=== PATIENT | female | born 1950 | race African-American/Black ===

== ENCOUNTER 2017-09-07 13:04 | Emergency (ER) | payer MEDICARE, MEDICAID ==
[2017-09-07 13:26] VITALS: BP 189/84
--- NOTE | 2017-09-07 13:29 | UC ---
Cardiac HPI - HPI Summary HPI Summary: This is scribe Radha Bethea documenting for attending Claudia Busch M.D. Pt is a 66 y/o F who presents to [facility] c/o CP and palpitations for 2 days. Pain is in the left anterior and lateral regions, ranked 5/10 on triage. Yesterday, pain was characterized as tightness "like when you have a chest cold " and today, it's described as a "pinching sensation." Pt tried resting and hydrating, as well as taking Advil, which did not improve sx. Palpitations are characterized as pounding. Additionally c/o mild nausea (which she suspects is secondary to having not eaten) and generalized weakness. Denies SOB and lightheadedness. Notes that she tends to experience gastritis secondary to ASA. 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 States that her current episode of symptoms is not similar to when she had an RI. She has a prescription for NTG which she reports she has never taken. PCP is Dr. Moon and she last had a stress test many years ago. At the time, she was unable to complete a physical test and instead did a nuclear stress test. SHx current smoker -1 PPD. Patients medication reviewed this visit. - History of Current Complaint Chief Complaint: UCChestPain Stated Complaint: CHEST PAIN Time Seen by Provider: 09/07/17 13:06 Hx Obtained From: Patient Hx Last Menstrual Period: na Onset/Duration: Lasting Days - 2 days, Still Present Current Severity: Moderate Pain Intensity: 5 Chest Pain Location: Left Anterior, Left Lateral Character: Tightness Aggravating Factor(s): Nothing Alleviating Factor(s): Nothing Associated Signs & Symptoms: Positive: Palpitations. Negative: SOB - Allergy/Home Medications Allergies/Adverse Reactions: Allergies Allergy/AdvReac Type Severity Reaction Status Date / Time No Known Allergies Allergy Verified 09/07/17 13:27 Home Medications: Home Medications Nitroglycerin TAB 0.3 MG* 0.3 mg SL Q5M PRN 09/07/17 [History Confirmed 09/07/17 ] PMH/Surg Hx/FS Hx/Imm Hx Endocrine History: Diabetes - Borderline, Dyslipidemia Cardiovascular History: Cardiac Disease, Hypertension, Myocardial Infarction GI/ History: Ulcer Other History Of: Negative For: Anticoagulant Therapy - Surgical History Surgical History: Yes Surgery Procedure, Year, and Place: CATARACT REMOVED FROM RIGHT and left EYEs - Family History Known Family History: Positive: Cardiac Disease, Diabetes, Other - cataracts - Social History Occupation: Disabled Lives: With Family Alcohol Use: None Substance Use Type: None Smoking Status (MU): Heavy Every Day Tobacco Smoker Type: Cigarettes Amount Used/How Often: 1 PPD Length of Time of Smoking/Using Tobacco: 54 Have You Smoked in the Last Year: Yes Household Exposure Type: Cigarettes - Immunization History Most Recent Influenza Vaccination: 2001 Most Recent Tetanus Shot: 2013 Most Recent Pneumonia Vaccination: never Review of Systems Constitutional: Other - Generalized weakness Skin: Negative Eyes: Negative ENT: Negative Respiratory: Negative Cardiovascular: Palpitations, Chest Pain Gastrointestinal: Nausea Genitourinary: Negative Motor: Negative Neurovascular: Negative Musculoskeletal: Negative Neurological: Negative Psychological: Negative All Other Systems Reviewed And Are Negative: Yes - Comments Additional Review of Systems Comments: NEGATIVE: SOB, lightheadedness Physical Exam - Summary Physical Exam Summary: Vital Signs Reviewed: Yes A+Ox3, no distress Eyes: Conjunctiva Clear, KATALINA. EOM intact and full ENT: Hearing grossly normal TM x 2 clear, mmoist, uvula midline, no exudate, no erythema Neck: Positive: Supple Respiratory: Positive: No respiratory distress, No accessory muscle use + CTA throughout no w/r Cardiovascular: RRR nl s1, s2 no m/r CBT <2 sec non tender to pa abd soft + BS nt/nd no guarding, no distension Musculoskeletal Exam: MERCADO x 4 without difficulty Strength Intact, ROM Intact Neurological: Positive: Alert, + sensation throughout Psychological: Positive: Normal Response To Family Skin: Positive: no rash, no ecchymosis dry Triage Information Reviewed: Yes Vital Signs: Initial Vital Signs Temp 97.5 F 09/07/17 13:20 Pulse 65 09/07/17 13:20 Resp 18 09/07/17 13:20 BP 189/84 09/07/17 13:20 Pulse Ox 99 09/07/17 13:20 Diagnostics - EKG EKG Comments: Done at 1304\\ No acute ST T wave changes Cardiac Rate: NL - 62 bpm Cardiac Rhythm: Sinus: Normal ST Segment: Normal - Assessment/Plan Course Of Treatment: Patient medications reviewed this visit. Blood pressure noted and pt informed to follow up with her PCP. Patient presents to urgent care with reports of chest pounding palpitations, nausea, and chest pressure yesterday. Other symptoms lasted for 2 days. Patient has not taken anything for pain today. Patient took Motrin yesterday. Patient does have hypertension , diabetes borderline, high cholesterol. 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 Patient does not see cardiology is. Patient has not had a stress test many years. Discussed with patient her EKG. Concerned given her past history and medical history. Recommend patient reemerged in by EMS. Patient in agreement with plan. Patient has a notify family. No family available melena. Patient states her knees brought her here. Patient agrees to go. Spoke with Dr. Arredondo give report in the ED. Of note, pt with elevated BP. Pt going to ED by EMS for eval - Clinical Impression Provider Diagnoses: chest pain - Physician Notifications Discussed Patient Care With: Claudia Rouse - Attending in the E.D. Time Discussed With Above Provider: 13:50 Instructed by Provider To: Other - Discussed case. Discharge - Sign-Out/Discharge Documenting (check all that apply): Patient Departure - To ED - Discharge Plan Condition: Stable Disposition: TRANS HIGHER LVL OF CARE FAC Referrals: Katy Moon MD [Primary Care Provider] - - Billing Disposition and Condition Condition: STABLE Disposition: Trans Higher Lvl of Care Fac
[2017-09-07] MEDS ORDERED: Aspirin 81 mg CHEW TAB* 81 MG TAB.CHEW PO ONE (13:44)
== END 2017-09-07 14:06 | disposition short-term general hospital (02) ==
LOC: UCEAST 13:04
DX: R07.89 Other chest pain (principal); R00.2 Palpitations; R11.0 Nausea; R53.1 Weakness; I25.2 Old myocardial infarction; I10 Essential (primary) hypertension; Z82.49 Family history of ischemic heart disease and other diseases of the circulatory system; Z83.3 Family history of diabetes mellitus; F17.210 Nicotine dependence, cigarettes, uncomplicated
CPT/HCPCS: 93005; 99213; A9270-GY; G0463

== ENCOUNTER 2017-09-07 14:23 | Inpatient (IN) | payer MEDICARE, MEDICAID ==
--- NOTE | 2017-09-07 14:29 | ED ---
HPI Chest Pain - HPI Summary HPI Summary: This is opal Connell documenting for attending Claudia Rouse M.D. This patient is a 66 year old F presenting to [facility], referred from [facility] , with a chief complaint of CP since 09/05/17. Denies current CP, SOB. Pt endorsed pain started radiating to her jaw, neck and arms, and she experienced palpitations, which is when she decided to go to . Pt endorses a mild cough, chest congestion. Pt informed of her HTN 200/100 which is concerning for her and pt was hypertensive in urgent care also. She denies any recent fever. Pt took 162 mg ASA in urgent care. Pt initially declined ASA due to GI upset but agreed to 162mg ASA. PMHx HTN, HLD, CAD, [place]: flown somewhere for a heart attack once. Pt had a nuclear stress test years ago. Her PCP is Dr. Moon. Pt continues to smoke cigarettes. - History of Current Complaint Hx Obtained From: Patient, Medical Records, Other: - Dr. Busch at urgent care Hx Last Menstrual Period: na Onset/Duration: Started Days Ago - 2, Resolved Timing: Constant, Lasting Days - resolved Initial Severity: Moderate Current Severity: None Pain Intensity: 0 Pain Scale Used: 0-10 Numeric Chest Pain Location: Diffuse Chest Pain Radiates: Yes Chest Pain Radiates To:: Arm - both, Jaw, Neck Character: Cough, Non-Productive, Fast, Pounding, Tightness Aggravating Factor(s): Nothing Alleviating Factor(s): Medication - ASA taken at Associated Signs and Symptoms: Positive: Chest Pain, Palpitations, Nonproductive Cough. Negative: Shortness of Breath, Fever - Allergy/Home Medications Allergies/Adverse Reactions: Allergies Allergy/AdvReac Type Severity Reaction Status Date / Time No Known Allergies Allergy Verified 09/07/17 13:27 Home Medications: Home Medications Atorvastatin* [Lipitor 40 MG*] 40 mg PO DAILY 09/07/17 [History Confirmed ] Colestipol (NF) 1 gm PO DAILY 09/07/17 [History Confirmed 09/07/17] HYDROcodone/ACETAMIN 5-325 MG* [[place]ler 5-325 TAB*] 1 tab PO Q6H PRN 09/07/17 [ History Confirmed 09/07/17] PMH/Surg Hx/FS Hx/Imm Hx Previously Healthy: No Endocrine/Hematology History: Reports: Hx Unexplained Bleeding Denies: Hx Anticoagulant Therapy, Hx Blood Disorders, Hx Blood Transfusions, Hx Bone Marrow Disease, Hx Diabetes, Hx Systemic Lupus Erythematosus, Hx Sickle Cell Disease, Hx Thyroid Disease, Hx Anemia Cardiovascular History: Reports: Hx Angina, Hx Coronary Artery Disease, Hx Hypercholesterolemia, Hx Hypertension, Hx Myocardial Infarction - 5 per pt Denies: Hx Pacemaker/ICD, Hx Rheumatic Fever, Hx Syncope, Hx Valvular Heart Disease Respiratory History: Reports: Hx Seasonal Allergies Denies: Hx Asthma, Hx Chronic Bronchitis, Hx Chronic Obstructive Pulmonary Disease (COPD), Hx Cystic Fibrosis, Hx Lung Cancer, Hx Pleural Effusion, Hx Pneumonia, Hx Pulmonary Edema, Hx Pulmonary Embolism, Hx Sleep Apnea GI History: Reports: Hx Ulcer Denies: Hx Cirrhosis Sensory History: Reports: Hx Cataracts, Hx Contacts or Glasses, Hx Glaucoma Denies: Hx Legally Blind, Hx Macular Degeneration, Hx Deafness, Hx Hearing Aid Opthamlomology History: Reports: Hx Cataracts, Hx Contacts or Glasses, Hx Glaucoma Denies: Hx Legally Blind, Hx Macular Degeneration EENT History: Denies: Hx Deafness Neurological History: Reports: Hx Migraine Denies: Hx Dementia, Hx Developmental Delay, Hx Headaches, Hx Nerve Disease, Hx Seizures, Hx Spinal Cord Injury, Hx Transient Ischemic Attacks (TIA) Psychiatric History: Denies: Hx Panic Disorder - Surgical History Surgery Procedure, Year, and Place: CATARACT REMOVED FROM RIGHT and left EYEs Hx Anesthesia Reactions: No Infectious Disease History: No Infectious Disease History: Denies: Hx Clostridium Difficile, Hx Hepatitis, Hx Human Immunodeficiency Virus (HIV), Hx of Known/Suspected MRSA, Hx Shingles, Hx Tuberculosis - Family History Known Family History: Positive: Cardiac Disease, Diabetes, Other - cataracts - Social History Occupation: Disabled Alcohol Use: None Substance Use Type: Reports: None Hx Tobacco Use: Yes Smoking Status (MU): Heavy Every Day Tobacco Smoker Type: Cigarettes Amount Used/How Often: 1 PPD Length of Time of Smoking/Using Tobacco: 54 Have You Smoked in the Last Year: Yes Review of Systems Negative: Fever Positive: Palpitations, Chest Pain Positive: Cough - nonproductive . Negative: Shortness Of Breath Gastrointestinal: Negative Positive: no symptoms reported Positive: Arthralgia - neck, jaw, Myalgia - bilateral arms Skin: Negative Neurological: Negative Psychological: Normal All Other Systems Reviewed And Are Negative: Yes Physical Exam - Summary Physical Exam Summary: Appearance: Well-appearing, no pain distress, obese, hypertensive Skin: Warm, color reflects adequate perfusion, dry Head: Normal Head/Face inspection, atraumatic Eyes: Conjunctiva clear ENT: Normal inspection Neck: Supple, no nodes, no JVD Respiratory: Lungs clear, normal breath sounds, no respiratory distress Cardio: RRR, No murmur, pulses normal, brisk capillary refill Abdomen: Soft, nontender Bowel sounds: Present Musculoskeletal: Strength Intact/ROM intact, no calf tenderness, no edema. Psychological: Normal Neuro: Alert, muscle tone normal, no focal deficit Triage Information Reviewed: Yes Vital Signs Reviewed: Yes Diagnostics - Laboratory Result Diagrams: 09/08/17 05:52 09/08/17 05:52 Lab Statement: Any lab studies that have been ordered have been reviewed, and results considered in the medical decision making process. - Radiology CXR Xray Interpretation: No Acute Changes Radiology Interpretation Completed By: Radiologist - Cardiomegaly; no evidence for acute finding. - EKG 1435 Cardiac Rate: Bradycardia - 59 EKG Rhythm: Sinus Bradycardia ST Segment: Normal Ectopy: None EKG Interpretation: nl axis, nl AV IV CT, nl QTc, no acute changes EKG Comparison: No Significant Change - when compared with earlier today 09/07/17 , 11/20/15. Re-Evaluation - Re-Evaluation First Eval Re-Evaluation Time: 16:42 Change: Improved Comment: Per RN Rochelle, manual reading of blood pressure 186/118. Pt endorses CP has improved. Second Eval Re-Evaluation Time: 17:00 Change: Unchanged - 1700 Pt feels hungry, can eat now. Recheck BP 213/142. Endorses feeling congested, One good cough and it would go away endorses mild cough, no fever. Amenable to discharge if BP is controlled. Chest Pain Course/Dx - Course Course Of Treatment: 66 yo F with HTN, DM, HTN, hyperlipidemia and "being flown somewhere for a heart attack" who still smokes, presents by EMS after given ASA 162 mg chewed at [facility] for chest pain, palpitations, hypertensive emergency. EKG sinus bradycardia 59, nl REFUGIO CT, nl axis, nl QTc, no acute changes, no changes when c/w earlier today 09/07/17, and 11/20/15. CXR reveals cardiomegaly; no evidence for acute finding. Pt was given norvasc and IV labetalol 10mg with no change in her BP. Pt with multiple cardiac risk factors and probable cardiac hx, admitted for further evaluation of chest pain which resolved spontaneously prior to ED and for control of hypertensive emergency that did not respond to oral norvasc or IV labetalol 10mg IV. - Diagnoses Provider Diagnoses: Chest pain, Tobacco abuse disorder, Hypertension, uncontrolled, Hypertensive emergency without congestive heart failure - Provider Notifications Discussed Care Of Patient With: Benito Dow Time Discussed With Above Provider: 18:20 Instructed by Provider To: Other - accepts admission - Critical Care Time Critical Care Time: 30-74 min - 30 minutes, evaluation and treatment of chest pain and hypertensive emergency with IV medication, requiring admission to ICU Discharge - Sign-Out/Discharge Documenting (check all that apply): Patient Departure - admit - Discharge Plan Condition: Improved Disposition: ADMITTED TO [facility] - Billing Disposition and Condition Condition: IMPROVED Disposition: Admitted to [facility]
[2017-09-07 15:37] LABS: ABS Basophils 0.1 10^3/ul (0-0.2); ABS Eosinophils 0.5 10^3/ul (0-0.6); ABS Lymphocytes 3.3 10^3/ul (1.0-4.8); ABS Monocytes 0.6 10^3/ul (0-0.8); ABS Neutrophils 2.8 10^3/ul (1.5-7.7); ABS Nucleated RBC 0 10^3/ul; Eosinophil % 6.3 % (0-6); Hematocrit 41 % (35-47); Hemoglobin 14.2 g/dl (12.0-16.0); Lymphocyte % 45.1 % (25-47); Mean Corpuscular HGB Conc 35 g/dl (31-36); Mean Corpuscular Hemoglobin 32 pg (27-31); Mean Corpuscular Volume 92 fL (80-97); Mean Platelet Volume 7.4 um3 (7.4-10.4); Nucleated Red Blood Cells % 0.2; Platelet Count 315 10^3/ul (150-450); Red Blood Count 4.41 10^6/ul (4.00-5.40); Red Cell Distribution Width 13 % (10.5-15); White Blood Count 7.3 10^3/ul (3.5-10.8)
[2017-09-07 15:47] LABS: INR 0.99 (0.77-1.02)
--- NOTE | 2017-09-07 15:51 | RAD ---
INDICATION: Chest pain. COMPARISON: Comparison is made with a prior chest x-ray study from July 07, 2013. TECHNIQUE: A portable view of the chest was obtained. FINDINGS: The heart is mildly enlarged and unchanged. There is a slightly tortuous ectatic thoracic aorta. The lungs are clear. No pleural effusion is seen. IMPRESSION: CARDIOMEGALY, NO EVIDENCE FOR ACUTE FINDING.
[2017-09-07 15:59] LABS: EGFR Non-African American 83.2 (>60)
[2017-09-07] MEDS ORDERED: amLODIPine TAB* 5 MG PO ONE (16:38)
[2017-09-07] MEDS ORDERED: amLODIPine TAB* 5 MG ONE (16:40)
[2017-09-07] MEDS ORDERED: Labetalol IV* 5 MG/ML 20 ML VIAL IV PUSH ONE (18:10)
[2017-09-07] MEDS ORDERED: hydrALAZINE IV* 20 MG/ML VIAL ONE (18:38)
[2017-09-07] MEDS ORDERED: hydrALAZINE IV* 20 MG/ML VIAL IV SLOW PU ONE (18:40)
[2017-09-07] MEDS ORDERED: Acetaminophen TAB* 325 MG PO PRN (18:48)
[2017-09-07] MEDS ORDERED: Ondansetron INJ* 2 MG/ML VIAL IV PRN (18:48)
[2017-09-07] MEDS ORDERED: hydrALAZINE IV* 20 MG/ML VIAL IV SLOW PU PRN (18:48)
[2017-09-07] MEDS ORDERED: Albuterol 2.5 MG/3 ML NEB.SOL* (0.083%) INH PRN (19:01)
[2017-09-07] MEDS ORDERED: Potassium Chlor TAB* 20 MEQ TAB.ER PO ONE (19:01)
--- NOTE | 2017-09-07 19:14 | RAD ---
Indication: Headaches. CT of the brain performed without IV contrast. Ventricular structures are midline. No midline shift is noted. The extra-axial spaces are unremarkable. No evidence of intracranial mass or hemorrhage. No other high or low density lesions are identified. Mastoid air cells and paranasal sinuses are otherwise unremarkable. IMPRESSION: No intracranial mass or hemorrhage is noted.
[2017-09-07] MEDS ORDERED: niCARdipine 0.1MG/ML IVPREMIX* 20 MG/200 ML BAG ONE (19:48)
[2017-09-07] MEDS: niCARdipine 0.1MG/ML IVPREMIX* 20 MG/200 ML BAG IV SCH ×2 (20:30→22:54)
[2017-09-07] MEDS: HYDROcodone/ACETAMIN 5-325 MG* 1 TAB PO PRN (20:37)
--- NOTE | 2017-09-07 21:14 | HP ---
CC: Dr. Moon * HISTORY AND PHYSICAL: DATE OF ADMISSION: 09/07/17 PRIMARY CARE PROVIDER: Dr. Moon. ATTENDING PHYSICIAN IN THE HOSPITAL: Arthur Dow MD * (report dictated by Valente Noe NP) CHIEF COMPLAINT: 1. Chest pain. 2. Headache. HISTORY OF PRESENT ILLNESS: Mrs. Franklin is a 66-year-old female patient. She has a history of hypertension, hyperlipidemia. She also says she has a history of 4 MIs, although she has never had a CABG or stenting. She also carries a history of COPD, history of borderline diabetes, and history of peptic ulcer disease. She is coming into the ED today. She says the last couple of days, she has been having intermittent chest discomfort that does go into her jaw and down her arm and has been associated with exertion. She has had nausea at times with this. She says she does not feel short of breath. She says her blood pressure to her knowledge has been running okay with Dr. Moon. She says that she has also been having fluttering and palpitations in her chest. She was concerned because the discomfort was not going away. Her daughter convinced her to come into the hospital and so she decided to come into the ER today. When she arrived in the ER, blood pressure was 213/108 and despite interventions it has climbed up to 204/101. The patient said she had been having intermittent headaches. There have been no visual changes. She denies having any chest pain now. Says she is feeling well, but there was concern because her blood pressure may remain persistently elevated. Because of this, we were asked to evaluate for admission. PAST MEDICAL HISTORY: Significant for: 1. Hypertension. 2. Hyperlipidemia. 3. Reported history of SD. 4. COPD. 5. Borderline diabetes. 6. Peptic ulcer disease. PAST SURGICAL HISTORY: The patient had; 1. Cataract extraction. 2. Tonsillectomy. MEDICATIONS: Home meds according to the list provided include: 1. Nitro 0.3 mg sublingual every 5 minutes as needed for chest pain. 2. [place] 1 tablet every 6 hours as needed. 3. Colestipol 1 g p.o. daily. 4. Lipitor 40 mg daily. 5. Amlodipine 10 mg daily. 6. Aspirin 325 mg p.o. every other day. ALLERGIES TO MEDICATIONS: Include no known drug allergies. FAMILY HISTORY: Mother had a history of dementia and father had a history of CAD. SOCIAL HISTORY: She is about a pack a day smoker. She has been smoking for 52 years. She does not drink alcohol. Surrogate decision maker is her daughter. REVIEW OF SYSTEMS: There is no documented fever. She is denying any significant weight change. There is no double vision. She denies having any ear discharge. There is no rhinorrhea. There is no sore throat. No thyroid enlargement. There was chest pain from HPI. There is no orthopnea. No nocturnal dyspnea. There was no abdominal pain. There was no nausea, no vomiting. No dysuria, no frequency. No seizure, no loss of consciousness. No pruritus and no skin ulcerations. Review of 14 systems was completed, all others negative. PHYSICAL EXAMINATION GENERAL: At this time, Mrs. Franklin is a 66-year-old female patient. She is sitting in the ED stretcher. She does not appear to be in any acute distress. She is awake and well nourished. VITAL SIGNS: Reveals vital signs blood pressure now of 204/101, pulse 57, respirations 15, O2 sat 96%, temperature 97.5. HEENT: Head: Atraumatic and normocephalic. Eyes: EOMs are intact. Sclerae anicteric and not pale. Throat: Oral mucosa appears to be moist. No oropharyngeal erythema. NECK: Supple. LUNGS: Clear to auscultation bilaterally. No wheezes, rales, or rhonchi. HEART: Sounds S1, S2. Regular rate and rhythm. No murmurs, rubs, or gallops. ABDOMEN: Soft. It was flat, nontender. Bowel sounds were present. EXTREMITIES: Pulses were 2+ throughout. She is able to move all 4 extremities with 5/5 strength. NEUROLOGIC: She is awake. She is alert. She is oriented x3. Speech is clear. Tongue is midline. Warehouse Team Member were equal. She had no gross focal deficits. SKIN: Grossly intact. DIAGNOSTIC STUDIES/LAB DATA: Labs are revealing a WBC of 7.3, RBC of 4.41, hemoglobin of 14.2, hematocrit of 41 and platelet count of 315. INR 0.99, PTT of 33.7. D-dimer less than 200. Sodium was 141, potassium was 3.4, chloride of 107, bicarb of 26, BUN 12, creatinine of 0.70, glucose 83. Lactate 0.5. Calcium 9.2. Mag 2.0. Total bili 0.3, AST 14, ALT 14, alk phos 84. CK was 127 , CK-MB 3.3. Troponin 0.01. Repeat troponin was 0. BNP 32. Albumin 3.7. TSH was normal. The patient did have a chest x-ray obtained today, which revealed cardiomegaly, no evidence for acute findings. She did have an EKG obtained today, which is showing sinus bradycardia, rate of 59, no ST elevations or T wave inversions. She did have an EKG from 2 years ago. It is similar. She was bradycardic at that point as well. Old medical records were reviewed. ASSESSMENT AND PLAN: Mrs. Franklin is a 66-year-old female patient coming into the ER today with complaints of chest discomfort radiating into the jaw and then to the arm, at times associated with exertion. We were asked to evaluate for admission. She will be admitted under inpatient status for: 1. Chest discomfort. Again, I would like to have the patient do a stress test. However, her blood pressure at resting now is 200, which is a relative contraindication for stress testing. I would like to try to get better control of her blood pressure. If possible, we could try to do a stress test tomorrow. I am going to cycle troponins and get an echo. Chest pressure may be certainly related to her blood pressure being so elevated. So, I would like to get this controlled. I am going to place her in the ICU. I have started with p.r.n. hydralazine. This is her first IV med that she has gotten since she has been here. If I need to, I will start her on a continuous drip in the ICU, such as nicardipine. I am going to monitor her closely. She is on aspirin already and she is taking nystatin and she is chest pain-free now and she has had serial troponins, which were negative, which was reassuring. 2. Hypertensive emergency. Again, at this point, she has gotten p.r.n. hydralazine right now. If I cannot get her blood pressure below 180 and diastolic less than 110, I will certainly start her on nicardipine drip. I am getting a CT of the brain because of the headaches. 3. Hyperlipidemia. Continue meds as prescribed. 4. History of myocardial infarction. She is on aspirin at this point. We are getting an echo, cycling her trop. I will consider a stress test so we can get better control of the blood pressure. 5. Chronic obstructive pulmonary disease. I have ordered p.r.n. albuterol. 6. History of borderline diabetes. Follow up with PCP. 7. History of peptic ulcer disease. Continue current medical regimen. 8. DVT prophylaxis. Because of the elevated blood pressure, I am waiting for the CT of the brain. I am just going to put her on SCDs. 9. Fluids, electrolytes, and nutrition. She can have a heart-healthy diet. 10. Code status. Full code. TIME SPENT: On admission was 60 minutes, greater than half the time was spent face- to-face with the patient obtaining my history and physical; other half time was spent going over the plan of care with the patient and implementing plan of care. I did discuss the plan of care with my attending, Dr. Dow, he is in agreement. VALENTE NOE, TYRELL [id number]/CPS #: [id number] JESUS
[2017-09-08] MEDS: niCARdipine 0.1MG/ML IVPREMIX* 20 MG/200 ML BAG IV SCH ×4 (01:05→05:37)
[2017-09-08] MEDS: HYDROcodone/ACETAMIN 5-325 MG* 1 TAB PO PRN (04:18)
[2017-09-08] MEDS ORDERED: Morphine INJ* 2 MG/ML 1 ML SYRINGE (TWO MG - NEW SYRINGE VERSION) IV PRN (05:26)
[2017-09-08] MEDS ORDERED: Morphine INJ* 2 MG/ML 1 ML SYRINGE (TWO MG - NEW SYRINGE VERSION) ONE (05:31)
[2017-09-08] MEDS ORDERED: Iohexol 350* (CONTRAST) 500 ML MDV IV ONE (05:48)
[2017-09-08 06:08] LABS: ABS Basophils 0.1 10^3/ul (0-0.2); ABS Eosinophils 0.4 10^3/ul (0-0.6); ABS Lymphocytes 2.5 10^3/ul (1.0-4.8); ABS Monocytes 0.7 10^3/ul (0-0.8); ABS Neutrophils 5.3 10^3/ul (1.5-7.7); ABS Nucleated RBC 0 10^3/ul; Eosinophil % 4.1 % (0-6); Hematocrit 41 % (35-47); Hemoglobin 14.1 g/dl (12.0-16.0); Lymphocyte % 28.4 % (25-47); Mean Corpuscular HGB Conc 35 g/dl (31-36); Mean Corpuscular Hemoglobin 32 pg (27-31); Mean Corpuscular Volume 93 fL (80-97); Mean Platelet Volume 7.2 um3 (7.4-10.4); Nucleated Red Blood Cells % 0.1; Platelet Count 305 10^3/ul (150-450); Red Blood Count 4.38 10^6/ul (4.00-5.40); Red Cell Distribution Width 12 % (10.5-15)
[2017-09-08 06:14] LABS: INR 1.07 (0.77-1.02)
[2017-09-08 06:26] LABS: EGFR Non-African American 87.5 (>60)
--- NOTE | 2017-09-08 07:58 | RAD ---
HISTORY: Chest pain r/o dissection, r/o PE COMPARISONS: None TECHNIQUE: Multiple contiguous axial CT scans of the chest were obtained after the administration of nonionic intravenous contrast, timed to the pulmonary arterial phase of contrast enhancement.. Coronal and sagittal multiplanar reformations are also submitted for review. FINDINGS: NECK AND THYROID: The thyroid is heterogeneous and diffusely enlarged. CHEST WALL: There is no lower cervical, axillary, or supraclavicular lymphadenopathy by size criteria. HEART AND PERICARDIUM: Coronary and valvular cardiac calcifications are noted. There is a small pericardial effusion. AORTA AND PULMONARY VASCULATURE: There is no pulmonary arterial filling defect to suggest pulmonary embolism. There is fusiform enlargement of the right pulmonary artery which measures up to 2.8 cm in diameter.. There is no linear filling defect within the aorta to suggest aortic dissection. There is atherosclerosis of the thoracic aorta. MEDIASTINUM: There is no mediastinal lymphadenopathy by size criteria. JEREMY: There is no hilar lymphadenopathy by size criteria. AIRWAY AND ESOPHAGUS: The airway is unremarkable, without endobronchial filling defect. The esophagus is grossly normal. LUNG PARENCHYMA: The lungs are clear. PLEURA: No pleural abnormalities are noted. UPPER ABDOMEN: There is a moderate sliding hiatal hernia. BONES AND SOFT TISSUES: Mild degenerative changes are noted. OTHER: None. IMPRESSION: 1. NO PULMONARY ARTERIAL FILLING DEFECT TO SUGGEST PULMONARY EMBOLISM. WITHIN THE LIMITATIONS OF THE TECHNIQUE, THERE IS NO APPRECIABLE LINEAR FILLING DEFECT TO SUGGEST AORTIC DISSECTION. 2. ENLARGEMENT OF THE RIGHT MAIN PULMONARY ARTERY. 3. ENLARGED HETEROGENEOUS THYROID. 4. HIATAL HERNIA. 5. SMALL PERICARDIAL EFFUSION. R2
[2017-09-08] MEDS ORDERED: amLODIPine TAB* 5 MG PO SCH (09:00)
[2017-09-08] MEDS: Atorvastatin* 40 MG TAB PO SCH (10:05)
[2017-09-08] MEDS: NIFEdipine ER TAB* 30 MG PO SCH (10:05)
[2017-09-08] MEDS: Metoprolol Tartrate TAB* 25 MG PO SCH ×2 (10:07→21:08)
--- NOTE | 2017-09-08 11:55 | ECHO ---
Patient: BRITTON TAVERAS [facility] Rec#: [id number] : 1950 Date: 09/08/2017 Age: 66y Height: 163 cm / 64.2 in Weight: 80.7 kg / 177.9 lbs Sex: F BSA: 1.9 Room#: ICU 10 Admit Date#: 09/08/2017 Type: Inpatient Referring: Valente Noe NP Reading: Sadi Miranda MD Tile Grader: Yamileth Calloway RN RDCS CC: Katy Moon MD Transthoracic Echocardiogram Indication: Chest pain BP: 135/63 HR: 65 Rhythm: NSR Findings History: CAD, HTN, HLD, DM, COPD, smoker Technical Comments: The study quality is fair. The study is technically limited due to patient body habitus. The study is technically limited due to the patient's smoking history. Left Ventricle: The left ventricular chamber size is normal. Moderate concentric left ventricular hypertrophy is observed. Global left ventricular wall motion and contractility are within normal limits. There is normal left ventricular systolic function. The estimated ejection fraction is 60-65%. There is an E to A reversal in the mitral valve flow pattern suggestive of diastolic dysfunction. Left Atrium: The left atrium is normal in size. Right Ventricle: The right ventricular cavity size is normal. The right ventricular global systolic function is low normal. Right Atrium: The right atrial cavity size is normal. Aortic Valve: The aortic valve is trileaflet. The aortic valve leaflets are mildly thickened. There is no evidence of aortic regurgitation. There is borderline aortic stenosis present. The mean gradient of the aortic valve is 11 mmHg. The peak instantaneous gradient of the aortic valve is 21 mmHg. The aortic valve area, by peak velocities, is calculated at 2.2 cm2. The aortic valve area, by VTI's, is calculated at 2.1 cm2. Mitral Valve: There is mitral annular calcification. The mitral valve leaflets are mildly thickened. There is mild mitral regurgitation. There is no evidence of mitral stenosis. Tricuspid Valve: The tricuspid valve leaflets are normal. There is trace to mild tricuspid regurgitation. Unable to estimate the right ventricular systolic pressure. There is no tricuspid stenosis. Pulmonic Valve: The pulmonic valve structure is not well visualized. There is a trace pulmonic regurgitation. There is no pulmonic stenosis. Pericardium: A trivial pericardial effusion is visualized.No hemodynamic compromise. A pericardial fat pad is visualized. Aorta: There is no dilatation of the ascending aorta. There is no dilatation of the aortic arch. There is no dilation of the aortic root. Pulmonary Artery: The main pulmonary artery is not well visualized. Venous: The venous system is not well visualized. The inferior vena cava is not visualized. Summary: There are changes noted when compared to the previous study done on 07/08/2013, borderline is new. MR is mild instead of trace then. Conclusions The left ventricular chamber size is normal. Moderate concentric left ventricular hypertrophy is observed. The estimated ejection fraction is 60-65%. There is an E to A reversal in the mitral valve flow pattern suggestive of diastolic dysfunction. There is borderline aortic stenosis present. The mean gradient of the aortic valve is 11 mmHg. There is mild mitral regurgitation. There is trace to mild tricuspid regurgitation. Unable to estimate the right ventricular systolic pressure. A trivial pericardial effusion is visualized.No hemodynamic compromise. Measurements Name Value Normal Range RVIDd (AP) 2D 2.7 cm (0.9 - 2.6) RVDdMajor (2D) 3.5 cm (2.2 - 4.4) RAd ISD 4CH 4.4 cm (3.4 - 4.9) RA (A4C)W 4.1 cm (2.9 - 4.6) IVSd (2D) 1.5 cm (0.6 - 1) LVPWd (2D) 1.5 cm (0.6 - 1) LVIDd (2D) 3.6 cm (3.6 - 5.4) LVIDs (2D) 2.1 cm - LV FS (2D) 42 % (25 - 45) Aortic Annulus 1.8 cm (1.4 - 2.6) Ao root diameter (2D) 2.7 cm (2.1 - 3.5) Ascending Ao 2.9 cm (2.1 - 3.4) Aortic arch 3.3 cm (1.8 - 3.4) LA dimension (AP) 2D 3.5 cm (2.3 - 3.8) LAd ISD 4CH 5.1 cm (2.9 - 5.3) LA ISD 4CH W 4 cm (2.5 - 4.5) Name Value Normal Range LA ESV SP 4CH (MOD) 57 ml - LA ESV SP 2CH (MOD) 51 ml - Name Value Normal Range MV E-wave Vmax 0.72 m/sec - MV deceleration time 239 msec - MV A-wave Vmax 1.3 m/sec - MV E:A ratio 0.6 ratio - LV septal e' Vmax 0.05 m/sec - LV lateral e' Vmax 0.05 m/sec - LV E:e' septal ratio 14.4 ratio - LV E:e' lateral ratio 14.4 ratio - Name Value Normal Range AV Vmax 2.3 m/sec - AV VTI 49.9 cm - AV peak gradient 21 mmHg - AV mean gradient 11 mmHg - LVOT diameter 1.9 cm - LVOT Vmax 1.7 m/sec - LVOT VTI 36.7 cm - LVOT peak gradient 12 mmHg - LVOT mean gradient 7 mmHg - DOI (VTI) 0.74 ratio - DOI (Vmax) 0.74 ratio - ADDIS (continuity Vmax) 2.2 cm2 - ADDIS (continuity VTI) 2.1 cm2 - Name Value Normal Range PV Vmax 1.1 m/sec -
--- NOTE | 2017-09-08 12:56 | PN ---
Subjective Date of Service: 09/08/17 Interval History: She c/o L-sided chest pain about 8 AM, by noon no longer had chest pain. She states the pain was very similar to the pain she has had from her heart in the past. Objective Active Medications: Acetaminophen (Tylenol Tab*) 650 mg PO Q4H PRN PRN Reason: FEVER/PAIN Hydrocodone Bitart/Acetaminophen ([place] 5-325 Tab*) 1 tab PO Q6H PRN PRN Reason: PAIN Last Admin: 09/08/17 04:18 Dose: 1 tab Albuterol (Ventolin 2.5 Mg/3 Ml Neb.Chanelle*) 2.5 mg INH Q2H PRN PRN Reason: SOB/WHEEZING Last Admin: 09/08/17 12:39 Dose: 2.5 mg Aspirin (Aspirin Tab*) 325 mg PO EVERY OTHER DAY [facility] Atorvastatin Calcium (Lipitor*) 40 mg PO DAILY [facility] Last Admin: 09/08/17 10:05 Dose: 40 mg Hydralazine HCl (Apresoline Iv*) 5 mg IV SLOW PU Q6H PRN PRN Reason: BLOOD PRESSURE Last Admin: 09/08/17 03:08 Dose: 5 mg Metoprolol Tartrate (Lopressor Tab*) 25 mg PO BID [facility] Last Admin: 09/08/17 10:07 Dose: 25 mg Morphine Sulfate (Morphine Inj ((Syringe))*) 2 mg IV Q4H PRN PRN Reason: SEVERE PAIN Last Admin: 09/08/17 05:37 Dose: 2 mg Nifedipine (Procardia Xl Tab*) 90 mg PO DAILY [facility] Last Admin: 09/08/17 10:05 Dose: 90 mg Ondansetron HCl (Zofran Inj*) 4 mg IV Q6H PRN PRN Reason: NAUSEA Last Admin: 09/08/17 02:52 Dose: 4 mg Terazosin HCl (Hytrin Cap*) 5 mg PO DAILY [facility] Vital Signs - 8 hr 09/08/17 09/08/17 09/08/17 05:00 05:15 05:30 Temperature Pulse Rate 78 77 76 Respiratory 19 19 16 Rate Blood Pressure 132/69 132/71 133/61 (mmHg) O2 Sat by Pulse 93 91 93 Oximetry 09/08/17 09/08/17 09/08/17 05:37 05:45 06:00 Temperature Pulse Rate 73 72 Respiratory 20 17 17 Rate Blood Pressure 109/56 112/61 (mmHg) O2 Sat by Pulse 90 90 Oximetry 09/08/17 09/08/17 09/08/17 06:41 06:45 07:00 Temperature Pulse Rate 74 74 63 Respiratory 17 19 18 Rate Blood Pressure 126/71 124/74 112/66 (mmHg) O2 Sat by Pulse 93 93 90 Oximetry 09/08/17 09/08/17 09/08/17 07:15 07:47 07:58 Temperature 98.8 F Pulse Rate 67 59 Respiratory 17 21 Rate Blood Pressure 114/74 114/66 (mmHg) O2 Sat by Pulse 89 96 Oximetry 09/08/17 09/08/17 09/08/17 08:00 08:15 08:31 Temperature Pulse Rate 59 64 61 Respiratory 18 16 14 Rate Blood Pressure 116/67 120/65 129/61 (mmHg) O2 Sat by Pulse 96 97 98 Oximetry 09/08/17 09/08/17 09/08/17 08:45 09:00 09:15 Temperature Pulse Rate 60 64 64 Respiratory 20 17 22 Rate Blood Pressure 143/62 142/71 129/67 (mmHg) O2 Sat by Pulse 97 93 93 Oximetry 09/08/17 09/08/17 09/08/17 09:30 09:45 10:00 Temperature Pulse Rate 63 61 62 Respiratory 15 16 14 Rate Blood Pressure 125/67 133/62 (mmHg) O2 Sat by Pulse 96 93 97 Oximetry 09/08/17 09/08/17 09/08/17 10:01 10:15 10:30 Temperature Pulse Rate 60 62 59 Respiratory 15 12 16 Rate Blood Pressure 147/66 142/70 (mmHg) O2 Sat by Pulse 96 97 97 Oximetry 09/08/17 09/08/17 09/08/17 10:45 11:00 11:15 Temperature Pulse Rate 58 57 56 Respiratory 18 15 16 Rate Blood Pressure 145/76 129/71 138/73 (mmHg) O2 Sat by Pulse 95 96 98 Oximetry 09/08/17 09/08/17 09/08/17 11:30 11:46 12:06 Temperature Pulse Rate 57 57 Respiratory 15 21 6 Rate Blood Pressure 117/70 147/72 (mmHg) O2 Sat by Pulse 97 96 Oximetry 09/08/17 09/08/17 09/08/17 12:15 12:30 12:41 Temperature Pulse Rate 67 57 57 Respiratory 23 19 15 Rate Blood Pressure 149/72 158/70 (mmHg) O2 Sat by Pulse 94 92 94 Oximetry Oxygen Devices in Use Now: None Appearance: Alert, partly up ICU bed. In good spirits. Looks comfortable. Eyes: No Scleral Icterus Respiratory: Symmetrical Chest Expansion and Respiratory Effort, Clear to Auscultation, Clear to Percussion Cardiovascular: NL Sounds; No Murmurs; No JVD, RRR, No Edema, - - No chest wall tenderness Extremities: No Edema, No Clubbing, Cyanosis, - Skin: No Rash or Ulcers, No Nodules or Sclerosis, - Neurological: Alert and Oriented x 3, NL Sensation Result Diagrams: 09/08/17 05:52 09/08/17 05:52 Microbiology and Other Data: Microbiology 09/08/17 04:00 Nasal Screen MRSA (PCR) - Final Nasal Mrsa Not Detected Assess/Plan/Problems-Billing Assessment: - Patient Problems (1) Chest pain Current Visit: Yes Status: Acute Code(s): R07.9 - CHEST PAIN, UNSPECIFIED SNOMED Code(s): 42123457 Comment: Atypical. Troponin wnl x 3. No significant change on ECG. Echo showed nl LVEF, evidence of possible diastolic dysfunction. Consider outpt stress test. Continue ASA. (2) HTN (hypertension) Current Visit: Yes Status: Acute Code(s): I10 - ESSENTIAL (PRIMARY) HYPERTENSION SNOMED Code(s): 84800911 Comment: Did well on nicardipine infusion, started nifedipine XR 90 mg + metoprolol tartrate 25 mg bid on 8/3 AM. (3) COPD (chronic obstructive pulmonary disease) Current Visit: Yes Status: Acute Code(s): J44.9 - CHRONIC OBSTRUCTIVE PULMONARY DISEASE, UNSPECIFIED SNOMED Code(s): 35982154 Comment: Albuterol neb PRN.
[2017-09-09 08:07] VITALS: BP 166/70
[2017-09-09] MEDS: Metoprolol Tartrate TAB* 25 MG PO SCH (08:16)
[2017-09-09] MEDS: Atorvastatin* 40 MG TAB PO SCH (08:26)
[2017-09-09] MEDS: NIFEdipine ER TAB* 30 MG PO SCH (08:26)
[2017-09-09] MEDS ORDERED: Aspirin 81 mg CHEW TAB* 81 MG TAB.CHEW PO SCH (09:00)
[2017-09-09] MEDS ORDERED: Aspirin TAB* 325 MG PO SCH (09:00)
[2017-09-09] MEDS ORDERED: Terazosin CAP* 5 MG PO SCH (09:00)
--- NOTE | 2017-09-09 13:56 | DS ---
CC: Dr. Moon DISCHARGE SUMMARY: DATE OF ADMISSION: DATE OF DISCHARGE: 09/09/17 HOSPITAL COURSE: This 66-year-old woman presented with chest pain and headache, she has had for sidra ral days. She had had intermittent chest discomfort going into her jaw and her arm associated with e xertion. She has had nausea. She had fluttering and palpitations in her chest. In the emergency ro om, her blood pressure was as high as 213/108. EKG did not show any changes. Repeat serial troponin levels and EKGs were unremarkable. She was monitored on the telemetry, and throughout her hospital stay, there were no significant arrhythmias. The chest pain resolved. She was initially treated in the intensive care unit with nicardipine infusion. She was switched to nifedipine XR by mouth and me toprolol. Her blood pressure was well controlled with this. On the day of discharge, her blood press ure was 166/82 at 4:00 in the morning, heart rate was 64 at 4:00 in the morning as well. She felt mu ch better. The patient has been under a lot of stress at home. Echocardiogram was unremarkable other than moderate concentric left ventricular hypertrophy. I would recommend that the patient have an outpatient stress test. She is at the maximum dose of nif edipine XR, but the metoprolol dose could be increased or an alpha darwin could be added to her juan c men if needed to control her blood pressure. FINAL DIAGNOSES: 1. Hypertension. 2. Chest pain of uncertain etiology. 3. Tobacco use disorder. 4. Chronic obstructive pulmonary disease. DISCHARGE MEDICATIONS: 1. Aspirin 81 mg daily. 2. Metoprolol tartrate 25 mg b.i.d. 3. Nifedipine ER 90 mg daily. 4. Nitroglycerin 0.3 mg sublingual every 5 minutes p.r.n. 5. Hydrocodone and acetaminophen 5/325 one every 6 hours p.r.n. 6. Colestipol 1 g daily. 7. Atorvastatin 40 mg daily. [id number]/[facility] #: [id number]
== END 2017-09-09 10:50 | disposition home or self-care (01) | DRG 305 ==
LOC: ED 14:23 → ICU 18:54 → MEDTELE 09-08 12:50
PROVIDERS: ADMIT Internal Medicine; ATTEND Internal Medicine
DX: I16.1 Hypertensive emergency (principal); I10 Essential (primary) hypertension; E78.5 Hyperlipidemia, unspecified; J44.9 Chronic obstructive pulmonary disease, unspecified; R73.03 Prediabetes; F17.210 Nicotine dependence, cigarettes, uncomplicated; I25.10 Atherosclerotic heart disease of native coronary artery without angina pectoris; J30.2 Other seasonal allergic rhinitis; H40.9 Unspecified glaucoma; G43.909 Migraine, unspecified, not intractable, without status migrainosus; R00.1 Bradycardia, unspecified; E66.9 Obesity, unspecified; R07.9 Chest pain, unspecified; I25.2 Old myocardial infarction; Z87.11 Personal history of peptic ulcer disease; Z82.49 Family history of ischemic heart disease and other diseases of the circulatory system; Z82.0 Family history of epilepsy and other diseases of the nervous system; Z98.42 Cataract extraction status, left eye; Z98.41 Cataract extraction status, right eye; Z83.3 Family history of diabetes mellitus; Z83.518 Family history of other specified eye disorder; Z79.82 Long term (current) use of aspirin; Z68.29 Body mass index [BMI] 29.0-29.9, adult
CPT/HCPCS: 36415; 70450; 71045; 71275; 80048; 80053; 80061; 82550; 82553; 83036; 83605; 83735; 83880; 84443; 84484; 85025; 85379; 85610; 85730; 87641; 93005; 93306; 94640; 99213; 99285; A9270-GY; G0463; J0360; J2270; J2405; Q9967

== ENCOUNTER 2018-06-11 12:01 | Emergency (ER) | payer MEDICARE, MEDICAID ==
--- NOTE | 2018-06-11 12:47 | UC ---
Ear Complaint HPI - HPI Summary HPI Summary: 67 yo female presents with sinus congestion for the last week. Last night developed left ear pain and muffled hearing. Pain in her left ear when blowing her nose. Has not been taking anything OTC for her symptoms. Denies fever, sore throat, cough. - History of Current Complaint Chief Complaint: UCEar Stated Complaint: EAR PAIN Time Seen by Provider: 06/11/18 12:47 Hx Obtained From: Patient Hx Last Menstrual Period: na Onset/Duration: Sudden Onset Severity Initially: Moderate Severity Currently: Moderate Pain Intensity: 5 Pain Scale Used: 0-10 Numeric - Allergies/Home Medications Allergies/Adverse Reactions: Allergies Allergy/AdvReac Type Severity Reaction Status Date / Time No Known Allergies Allergy Verified 06/11/18 12:12 PMH/Surg Hx/FS Hx/Imm Hx Endocrine History: Dyslipidemia Cardiovascular History: Hypertension Other History Of: Negative For: Anticoagulant Therapy - Surgical History Surgical History: Yes Surgery Procedure, Year, and Place: CATARACT REMOVED FROM RIGHT and left EYEs - Family History Known Family History: Positive: Cardiac Disease, Diabetes, Other - cataracts - Social History Lives: With Family Alcohol Use: None Substance Use Type: None Smoking Status (MU): Heavy Every Day Tobacco Smoker Type: Cigarettes Amount Used/How Often: 1 PPD Length of Time of Smoking/Using Tobacco: 54 Have You Smoked in the Last Year: Yes Household Exposure Type: Cigarettes - Immunization History Most Recent Influenza Vaccination: 2001 Most Recent Tetanus Shot: 2013 Most Recent Pneumonia Vaccination: never Review of Systems All Other Systems Reviewed And Are Negative: Yes Constitutional: Positive: Negative Skin: Positive: Negative Eyes: Positive: Negative ENT: Positive: Ear Ache, Sinus Congestion Respiratory: Positive: Negative Cardiovascular: Positive: Negative Gastrointestinal: Positive: Negative Neurovascular: Positive: Negative Neurological: Positive: Negative Psychological: Positive: Negative Physical Exam - Summary Physical Exam Summary: GENERAL: NAD. WDWN. No pain distress. SKIN: No rashes, sores, lesions, or open wounds. HEENT: Head: AT/NC Eyes: EOM intact. Conjunctiva clear without inflammation or discharge. Ears: Hearing grossly normal. LEFT TM with mild erythema and bulging. No canal edema or drainage. Nose: Nasal mucosa pink and moist. TTP maxillary > frontal sinus. Throat: Posterior oropharynx without exudates, erythema, or tonsillar enlargement. Uvula midline. NECK: Supple. Nontender. No lymphadenopathy. CHEST: CTAB. No r/r/w. No accessory muscle use. Breathing comfortably and in no distress. CV: RRR. Without m/r/g. Pulses intact. NEURO: Alert. PSYCH: Age appropriate behavior. Triage Information Reviewed: Yes Vital Signs: Initial Vital Signs Temp 98.1 F 06/11/18 12:09 Pulse 69 06/11/18 12:09 Resp 18 06/11/18 12:09 BP 198/94 06/11/18 12:09 Pulse Ox 99 06/11/18 12:09 Vital Signs Reviewed: Yes Ear Complaint Course/Dx - Course Course Of Treatment: Sinusitis. Otitis media left. - Differential Dx/Diagnosis Provider Diagnosis: Otitis media, Sinusitis Discharge - Sign-Out/Discharge Documenting (check all that apply): Patient Departure All imaging exams completed and their final reports reviewed: No Studies - Discharge Plan Condition: Stable Disposition: HOME Prescriptions: Amoxicillin PO (*) [Amoxicillin 875 MG (*)] 875 mg PO BID #14 tab Fluticasone NASAL SPRAY 50MCG* [Flonase NASAL SPRAY 50MCG*] 2 spray BOTH NARES DAILY #1 btl Patient Education Materials: Sinusitis (ED), Ear Infection (ED) Referrals: Katy Moon MD [Primary Care Provider] - Additional Instructions: If you develop a fever, shortness of breath, chest pain, new or worsening symptoms - please call your PCP or go to the ED immediately. Your blood pressure was high at todays visit. Please see your primary provider within 4 weeks for recheck and re-evaluation. - Billing Disposition and Condition Condition: STABLE Disposition: Home
[2018-06-11 13:03] VITALS: BP 182/100
== END 2018-06-11 13:05 | disposition home or self-care (01) ==
LOC: UCEAST 12:01
DX: J32.9 Chronic sinusitis, unspecified (principal); H66.92 Otitis media, unspecified, left ear; E78.5 Hyperlipidemia, unspecified; I10 Essential (primary) hypertension; F17.210 Nicotine dependence, cigarettes, uncomplicated
CPT/HCPCS: 99212; G0463

== ENCOUNTER 2018-07-23 10:48 | Emergency (ER) | payer MEDICARE, MEDICAID ==
[2018-07-23 11:39] VITALS: BP 125/80
--- NOTE | 2018-07-23 11:47 | UC ---
Ear Complaint HPI - HPI Summary HPI Summary: 67-year-old female who states that she has had some left ear pain over the past 3 days with some left eye drainage. She denies any visual changes. She describes the pain in her left ear as sharp and intermittent. She states occasionally she has some dizziness associated with that. She has not noticed any rash. She's had no recent cold symptoms. She does have seasonal allergies for which she takes Flonase however she has not been taking it regularly. Her son had some leftover ofloxacin drops so she put those in her ear this morning and states that numbed the pain. - History of Current Complaint Chief Complaint: UCEar Stated Complaint: LTEAR PAIN COUGH Time Seen by Provider: 07/23/18 11:45 Hx Obtained From: Patient Hx Last Menstrual Period: na Onset/Duration: Gradual Onset Severity Initially: Mild Severity Currently: Moderate Pain Intensity: 10 Aggravating Factors: Nothing Alleviating Factors: Other (Noted In Comments) - Patient took her son's ofloxacin drops this morning which she stated helped numb the pain in her ear. Associated Signs/Symptoms: Negative: Discharge, Hearing Loss, Foreign Body Sensation, Trauma to Ear, Swelling @, URI Symptoms - Allergies/Home Medications Allergies/Adverse Reactions: Allergies Allergy/AdvReac Type Severity Reaction Status Date / Time No Known Allergies Allergy Verified 07/23/18 11:12 Home Medications: Home Medications Ofloxacin 0.3% (Ear Drop)* [Floxin 0.3% OTIC.EDGAR (Ear Drop)] 1 drop LEFT EAR ONCE PRN 07/23/18 [History Confirmed 07/23/18] PMH/Surg Hx/FS Hx/Imm Hx Previously Healthy: Yes Endocrine History: Diabetes Cardiovascular History: Hypertension, Myocardial Infarction - Possibility of an [place] in the past. GI/ History: Ulcer Other History Of: Negative For: Anticoagulant Therapy - Surgical History Surgical History: Yes Surgery Procedure, Year, and Place: CATARACT REMOVED FROM RIGHT and left EYEs - Family History Known Family History: Positive: Cardiac Disease, Diabetes, Other - cataracts - Social History Alcohol Use: None Substance Use Type: None Smoking Status (MU): Heavy Every Day Tobacco Smoker Type: Cigarettes Amount Used/How Often: 1/2 PPD Length of Time of Smoking/Using Tobacco: 54 Have You Smoked in the Last Year: Yes Household Exposure Type: Cigarettes - Immunization History Most Recent Influenza Vaccination: 2001 Most Recent Tetanus Shot: 2014 Most Recent Pneumonia Vaccination: never Review of Systems All Other Systems Reviewed And Are Negative: Yes Skin: Negative: Rash Eyes: Positive: Drainage - Patient states that she had a little bit of crusty drainage from her left eye this morning. ENT: Positive: Ear Ache - Left ear ache which she describes as sharp and shooting. Neurological: Positive: Other - Patient states occasionally she'll we will have some mild dizziness since she has had the ear pain, which she describes as the room spinning and it resolves spontaneously within a few seconds. Is Patient Immunocompromised?: No Physical Exam Triage Information Reviewed: Yes Appearance: Well-Appearing, No Pain Distress - Patient is sitting comfortably for the exam occasionally she will have a sudden sharp pain to which she reacts it lasts less than 2 seconds., Well-Nourished Vital Signs: Initial Vital Signs Temp 95.5 F 07/23/18 11:07 Pulse 66 07/23/18 11:07 Resp 18 07/23/18 11:07 BP 177/101 07/23/18 11:07 Pulse Ox 100 07/23/18 11:07 Vital Signs Reviewed: Yes Eyes: Positive: Conjunctiva Clear, Other: - PERRLA, EOMI. Negative: Conjunctiva Inflamed, Discharge ENT: Positive: Normal ENT inspection, Hearing grossly normal, Pharynx normal, TMs normal, Uvula midline Respiratory: Positive: Lungs clear, Normal breath sounds, No respiratory distress, No accessory muscle use Cardiovascular: Positive: RRR, Pulses Normal, Brisk Capillary Refill Musculoskeletal: Positive: Strength Intact - Good arm and leg strength bilaterally against resistance., ROM Intact Neurological: Positive: Alert, Muscle Tone Normal Psychological Exam: Normal Skin: Positive: Other - I do not visualize any lesions in the ear canal itself nor around the ear and around the left side of her head where she states the pain shoots from the her ear to just above the left side of her head.. Negative : Rashes, Breakdown Ear Complaint Course/Dx - Course Course Of Treatment: At this point in time I'm going to have the patient use Flonase 2 sprays in each nostril once a day for the next week and then decrease to 1 spray in each nostril once a day, she is to stop the Motrin and I'm going to give her Naprosyn 500 mg by mouth twice a day to take with food. She has seen an ear nose and throat physician in the past with her children and I want her to follow -up in the next 24 hours if she continues to have the sharp shooting pain in her ear. The way she describes the pain makes me wonder if she couldn't have the beginning of shingles however there is absolutely no redness and no rash in the ear canal itself or around the ear or left side of head. She ambulated in and out without difficulty. - Differential Dx/Diagnosis Provider Diagnosis: Otalgia of left ear Discharge - Sign-Out/Discharge Documenting (check all that apply): Patient Departure All imaging exams completed and their final reports reviewed: No Studies - Discharge Plan Condition: Fair Disposition: HOME Prescriptions: Fluticasone NASAL SPRAY 50MCG* [Flonase NASAL SPRAY 50MCG*] 2 spray BOTH NARES DAILY 7 Days #1 btl Naproxen [Naprosyn 500 mg tab] 500 mg PO BID PRN 7 Days #14 tablet PRN Reason: Pain Patient Education Materials: Earache (ED) Referrals: Katy Moon MD [Primary Care Provider] - Dada Cardoso MD [Medical Doctor] - Additional Instructions: Stop taking Motrin. Two-year Flonase 2 sprays in each nostril once a day for a week and then decrease to 1 spray in each nostril once a day. Take the Naprosyn with food. Definite follow-up in one day with the ear nose and throat physician if any worsening symptoms. If you develop any kind of a rash around the painful area follow-up with your primary care provider or return here for a recheck. - Billing Disposition and Condition Condition: FAIR Disposition: Home
== END 2018-07-23 12:10 | disposition home or self-care (01) ==
LOC: UCEAST 10:48
DX: H92.02 Otalgia, left ear (principal); I10 Essential (primary) hypertension; I25.2 Old myocardial infarction; E11.9 Type 2 diabetes mellitus without complications; F17.210 Nicotine dependence, cigarettes, uncomplicated
CPT/HCPCS: 99212; G0463

== ENCOUNTER 2019-06-24 14:20 | Inpatient (IN) ==
[2019-06-24] MEDS ORDERED: Labetalol IV 5 MG/ML 20 ml VIAL IV PUSH ONE (14:24)
[2019-06-24] MEDS ORDERED: hydrALAZINE 20 mg/ml 1 ML Vial IV IV SLOW PU ONE ×2 (14:49→20:12)
[2019-06-24] MEDS ORDERED: niCARdipine 0.1MG/ML IVPREMIX 20 MG/200 ML BAG IV SCH ×2 (16:00→23:00)
[2019-06-24 16:59] LABS: ABS Basophils 0.1 10^3/ul (0-0.2); ABS Eosinophils 0.3 10^3/ul (0-0.6); ABS Lymphocytes 3.1 10^3/ul (1.0-4.8); ABS Monocytes 0.8 10^3/ul (0-0.8); ALT 15 U/L (7-52); AST 13 U/L (13-39); Albumin 3.9 g/dL (3.2-5.2); Albumin/Globulin Ratio 1.1 (1-3); Alkaline Phosphatase 94 U/L (34-104); Anion Gap 7 mmol/L (2-11); BUN/Creatinine Ratio 14.9 (8-20); Blood Urea Nitrogen 11 mg/dL (6-24); CO2 Carbon Dioxide 25 mmol/L (22-32); Calcium 9.7 mg/dL (8.6-10.3); Chloride 108 mmol/L (101-111); EGFR African American 93.9 (>60); EGFR Non-African American 77.6 (>60); Eosinophil % 4.1 %; Globulin 3.5 g/dL (2-4); Glucose 93 mg/dL (70-100); Hematocrit 44 % (35-47); Hemoglobin 15.3 g/dL (12.0-16.0); Lymphocyte % 40.7 %; Mean Corpuscular HGB Conc 35 g/dL (31-36); Mean Corpuscular Hemoglobin 32 pg (27-31); Mean Corpuscular Volume 93 fL (80-97); Mean Platelet Volume 7.7 fL (7.4-10.4); Nucleated Red Blood Cells % 0.1; Platelet Count 276 10^3/uL (150-450); Potassium 3.6 mmol/L (3.5-5.0); Red Blood Count 4.75 10^6 /uL (3.70-4.87); Red Cell Distribution Width 14 % (10-15); Sodium 140 mmol/L (135-145); Total Protein 7.4 g/dL (6.4-8.9); White Blood Count 7.7 10^3/uL (3.5-10.8)
[2019-06-24] MEDS ORDERED: Iodixanol (CONTRAST) 320 MG/ML 100 ML SDV IV ONE (17:04)
[2019-06-24] MEDS ORDERED: Aspirin EC 81 mg TAB.EC (enteric coated) PO ONE (17:05)
[2019-06-24 19:49] LABS: TSH (Thyroid Stimulating Horm) 0.85 mcIU/mL (0.34-5.60)
[2019-06-24 19:51] LABS: Free T4 0.72 ng/dL (0.61-1.12)
[2019-06-24 20:00] LABS: Folate 11.91 ng/mL (>3.99)
[2019-06-24] MEDS ORDERED: Ondansetron 4 mg VIAL 2 MG/ML 2 ml VIAL IV ONE (22:03)
[2019-06-25 04:39] LABS: ABS Basophils 0.1 10^3/ul (0-0.2); ABS Eosinophils 0.3 10^3/ul (0-0.6); ABS Monocytes 0.7 10^3/ul (0-0.8); Eosinophil % 3.8 %; Hematocrit 42 % (35-47); Hemoglobin 14.8 g/dL (12.0-16.0); Lymphocyte % 34.6 %; Mean Corpuscular HGB Conc 35 g/dL (31-36); Mean Corpuscular Hemoglobin 33 pg (27-31); Mean Corpuscular Volume 93 fL (80-97); Mean Platelet Volume 7.7 fL (7.4-10.4); Nucleated Red Blood Cells % 0.1; Platelet Count 293 10^3/uL (150-450); Red Blood Count 4.55 10^6 /uL (3.70-4.87); Red Cell Distribution Width 13 % (10-15); White Blood Count 8.6 10^3/uL (3.5-10.8)
[2019-06-25 05:10] LABS: BUN/Creatinine Ratio 16.2 (8-20); Calcium 9.2 mg/dL (8.6-10.3); EGFR African American 93.9 (>60); EGFR Non-African American 77.6 (>60); HDL Cholesterol 37.7 mg/dL; Potassium 3.4 mmol/L (3.5-5.0)
[2019-06-25] MEDS ORDERED: Labetalol IV 5 MG/ML 20 ml VIAL IV PUSH PRN (11:38)
[2019-06-25] MEDS ORDERED: Labetalol IV 5 MG/ML 20 ml VIAL ONE (11:41)
[2019-06-25] MEDS: hydrALAZINE 20 mg/ml 1 ML Vial IV IV SLOW PU PRN (12:41)
[2019-06-26] MEDS: hydrALAZINE 20 mg/ml 1 ML Vial IV IV SLOW PU PRN (12:16)
[2019-06-27 08:39] VITALS: BP 133/71
== END 2019-06-27 10:30 | disposition home or self-care (01) | DRG 65 ==
LOC: ED 14:20 → ICU 22:41 → MED 06-25 09:58
PROVIDERS: ADMIT Internal Medicine; ATTEND Internal Medicine